=== PATIENT | female | born 1955 | race Caucasian/White ===

== ENCOUNTER → 2024-05-19 | Outpatient (CLI) | payer MEDICARE, BC, SELFPAY ==
--- NOTE | 2024-05-19 16:11 | XR_ITS ---
Examination: CT bilateral hips., without contrast. 2-D sagittal reconstructions. 2-D coronal reconstructions. 3-D reconstructions. Date and time of exam:May 19, 2024 1656 hours INDICATIONS: Bilateral hip pain 2 years CTDI: vol (mGy):11.1 DLP: (mGycm):351 Technique: Multiple 1.25 mm axial sections of the bilateral hips without intravenous contrast have been obtained. 2-D sagittal and coronal reconstructions have been obtained. 3-D reconstructions have been obtained. Low dose protocols were performed. One or more of the following dose reduction techniques were used; automated exposure control, adjustment of the mA and/or KV according to patient size, use of iterative reconstruction technique. Findings: 2 mm calcification anterior right kidney image 4 No hydronephrosis Normal appendix Scattered colonic diverticulosis No bladder mass Moderate osteopenia Moderate right hip osteoarthritis joint space narrowing and osteophyte formation Moderate to advanced left hip osteoarthritis, significant joint narrowing and osteophyte formation No hip or pelvic fracture Bones of the pelvis intact IMPRESSION: Moderate right hip osteoarthritis Moderate to advanced left hip osteoarthritis
--- NOTE | 2024-05-19 16:15 | XR_ITS ---
Examination: Bilateral hips, AP pelvis, 5 views Technique: AP, lateral views both hips, AP pelvis, 5 views Exam date and time: . May 19, 2024 7059 hours INDICATIONS: Bilateral hip pain 3 months FINDINGS: Moderate osteopenia Moderate right hip osteoarthritis Moderate to advanced left hip osteoarthritis No hip or pelvic fracture No avascular necrosis IMPRESSION: Moderate right hip osteoarthritis Moderate to advanced left hip osteoarthritis
== END | disposition home or self-care (01) ==
LOC: CDIM 15:50
PROVIDERS: PCP Specialist; Referring Provider Specialist; Visit Provider Specialist
DX: M16.0 Bilateral primary osteoarthritis of hip (principal); Z74.09 Other reduced mobility
CPT/HCPCS: 73523; 73700

== ENCOUNTER 2024-06-04 14:09 | Outpatient (AMB) | payer MEDICARE, BC, SELFPAY ==
[2024-06-04 14:40] VITALS: BP 127/80; PULSE 85; RESP 17; TEMP 36.3; O2SAT 97; BMI 33.5
--- NOTE | 2024-06-04 14:40 | ORTHONT_ITS ---
Vital signs 06/04/24 14:40 Height 1.65 m Height Method Stated Weight 91.229 kg Weight Measurement Method Standing Scale BMI 33.5 BP 127/80 Blood Pressure Source Automatic Cuff Blood Pressure Location Right Upper Arm Position Sitting Respiration 17 Pulse 85 Pulse Source Monitor Temp 97.3 F Temp Source Temporal Artery Scan Pulse Oximetry (%) 97 Oxygen Delivery Method Room Air Med/Allergies Allergies & Medications Allergies No Known Allergies Allergy (Verified 06/04/24 14:41) Medication Reconciliation gabapentin 300 mg capsule 300 mg PO QDAY 06/04/24 [History Confirmed 06/04/24] meloxicam submicronized 10 mg capsule 10 mg PO QAM 06/04/24 [History Confirmed 06/04/24] Exam Exam Patient is in no acute distress and is cooperative with the examination today. Breathing is nonlabored. In no respiratory distress. Patient has no paraspinal tenderness. Spinal deformity cannot be appreciated. The gait of the patient is nonantalgic Bilateral extremities were evaluated and demonstrates sensation intact to light touch. Palpable pedal pulses are present. No significant edema is present. Bilateral knees were examined and the patient has full strength and range of motion.. The right hip was examined. Patient was able to flex to 90 degrees, adduct to 30 degrees, abduct to 40 degrees, internally rotate to 20 degrees, and externally rotate to 20 degrees. Patient has a negative logroll. Stinchfield is negative. The patient is nontender diffusely to touch. The left hip was examined. Patient was able to flex to 90 degrees, adduct to 30 degrees, abduct to 40 degrees, internally rotate to 10 degrees. Left hip x-rays demonstrate complete joint space of the left hip Assessment and Plan Problem List (1) Osteoarthritis of left hip: Status: Acute Plan: Patient is a pleasant 69-year-old female with left hip pain and left hip arthritis of significant severity. She has back issues as well. I would like for her to get a left hip cortisone injection for both diagnostic and therapeutic purposes. We discussed total hip replacement but I would like to make sure that the pain is coming from the hip rather than back and that she gets relief. 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 HAND Level 3 ([id number]) MA Intake Visit Data Collection New Patient or Established: Established Patient (seen at [facility] within 3 years) Reason for Visit:: LT HIP PAIN Seen by Clinical Staff ONLY (RN/MA): No Geographic Information Systems Analyst Required: No PCP or OBGYN visit in last 3 months: Yes Hx Now: No Do You Feel Safe at Home: Yes Authorities Contacted: N/A Questionairres Past Medical History Past Medical History Have you ever been diagnosed with any of the following: Neurological Problems Seizures: No Migraine: Yes Cardiology Problems Hypercholesterolemia: Yes (NO MEDS) Congestive Heart Failure: No Hypertension: Yes (NO MEDS) Respiratory Problems Chronic Obstructive Pulmonary Disease (COPD): No Pneumonia: Yes (01/2022 - NOT HOSP) Smoking: No Smoking Cessation Counseling: No Smoking Exposure: No Tobacco Use: No Stomache/Intestinal Problems Hepatitis: No Gall Bladder Disease: Yes (FOR THIS PROC) Gastroesophageal Reflux Disease: Yes Obesity: Yes Genital/Urinary Problems Renal Disease: No Kidney Stones: Yes (NO SURG) Reproductive Problems Previous Pregnancies: Yes (X3) Endocrine Problems Diabetes Mellitus Type 1: No Diabetes Mellitus Type 2: No Other Problems Hospitalization: No Shingles: No Falls: No Blood Transfusions: Yes Blood Transfusion Reaction: No Anesthesia Reactions: No (SLOW TO WAKE UP) Chemotherapy: No Radiation Therapy: No MRSA: No Chicken Pox: Yes Measles: No Mumps: No Cancer: No Subjective Visit Visit for: new patient and hip (LEFT HIP PAIN ) Immunization / Flu Flu Vaccine in the Last 12 Months: Yes Flu Vaccine Exclusion Criteria: Already Received History of Present Illness Chief complaint: Left hip pain Edmundo is a pleasant 69-year-old female with left hip pain. She has had prior back issues and is being worked up at [facility] has had multiple injections. The left hip is bothering her. The pain is primarily in the buttocks and radiates to the groin. This has been ongoing for a while. She has tried anti- inflammatories and turmeric. The pain is significantly limiting her Personal History Red flag PMH: none Pain Pain level (0-10): 6 Pain duration: 1 YEAR Pain location: inside (medial) Pain quality: sharp, dull, aching, burning, shocking, electric and tingling Pain timing: night and increases with activity Associated signs & symptoms: stiffness Ambulatory data Ambulatory device: none Walking distance (minutes): 5 Treatments Number of previous injections: 1 Improvement with previous injections: No Number of Physical Therapy sessions: 12 Improvement with PT: No Improvement with NSAIDS: n/a Review of Systems Review of Systems: All systems negative unless otherwise noted in HPI.
== END 2024-06-04 15:07 | disposition home or self-care (01) ==
LOC: HODSRG 14:09
PROVIDERS: PCP Specialist; Referring Provider Specialist; Supervising Provider Orthopaedic Surgery Adult Reconstructive Orthopaedic Surgery; Visit Provider Orthopaedic Surgery Adult Reconstructive Orthopaedic Surgery
DX: M16.12 Unilateral primary osteoarthritis, left hip (principal); M25.552 Pain in left hip; I10 Essential (primary) hypertension; E78.00 Pure hypercholesterolemia, unspecified; K21.9 Gastro-esophageal reflux disease without esophagitis
CPT/HCPCS: 99203; G0463

== ENCOUNTER → 2024-06-08 | Outpatient (CLI) | payer MEDICARE, BC, SELFPAY ==
--- NOTE | 2024-06-08 13:00 | XR_ITS ---
Examination: Steroid injection left hip joint with imaging guidance Fluoroscopy AP left hip single view. Exam date and time: June 08, 2024 1222 hours INDICATIONS: Diagnosis unilateral left hip osteoarthritis severe left hip pain 2 years Informed consent provided. Technique: A timeout was completed verifying correct patient, procedure, site, positioning. The patient was placed in supine position appropriate for the steroid injection The patient's site was prepped and draped in sterile fashion 5 cc 1% lidocaine administered locally for anesthesia. Sterile drape applied, maximum barrier sterile technique. Utilizing fluoroscopic guidance, 23-gauge needle placed in the left hip joint 1 cc Kenalog 40 in 5 cc 0.25% Marcaine introduced into the left hip joint The patient was in satisfactory and stable condition on completion of the procedure Attending radiologist was present for the entire procedure Estimated blood loss 0 cc. Impression: Successful steroid injection left hip joint with imaging guidance Fluoroscopy 0.3 minute radiation dose 4.97 milligray 1 spot fluoroscopic hip film
== END | disposition home or self-care (01) ==
LOC: SIRX 12:29
PROVIDERS: Referring Provider Orthopaedic Surgery Adult Reconstructive Orthopaedic Surgery; Visit Provider Orthopaedic Surgery Adult Reconstructive Orthopaedic Surgery
DX: M16.12 Unilateral primary osteoarthritis, left hip (principal)
CPT/HCPCS: 20610; 77002

== ENCOUNTER 2024-09-03 08:59 | Outpatient (AMB) | payer MEDICARE, BC, SELFPAY ==
--- NOTE | 2024-09-03 09:25 | PD.ORTHCLVIS ---
Vital signs 09/03/24 09:26 Height 1.65 m Height Method Stated Weight 92.278 kg Weight Measurement Method Standing Scale BMI 33.9 BP 144/83 H Blood Pressure Source Automatic Cuff Blood Pressure Location Left Upper Arm Position Sitting Respiration 18 Pulse 74 Pulse Source Monitor Temp 96.8 F Temp Source Temporal Artery Scan Pulse Oximetry (%) 97 Oxygen Delivery Method Room Air Med/Allergies Allergies & Medications Allergies No Known Allergies Allergy (Verified 09/03/24 09:26) Medication Reconciliation gabapentin 300 mg capsule 300 mg PO QDAY 06/04/24 [History Confirmed 09/03/24] meloxicam submicronized 10 mg capsule 10 mg PO QAM 06/04/24 [History Confirmed 09/03/24] Exam Exam Patient is in no acute distress and is cooperative with the examination today. Breathing is nonlabored. In no respiratory distress. Patient has no paraspinal tenderness. Spinal deformity cannot be appreciated. The gait of the patient is nonantalgic Bilateral extremities were evaluated and demonstrates sensation intact to light touch. Palpable pedal pulses are present. No significant edema is present. Bilateral knees were examined and the patient has full strength and range of motion.. The right hip was examined. Patient was able to flex to 90 degrees, adduct to 30 degrees, abduct to 40 degrees, internally rotate to 20 degrees, and externally rotate to 20 degrees. Patient has a negative logroll. Stinchfield is negative. The patient is nontender diffusely to touch. The left hip was examined. Patient was able to flex to 90 degrees, adduct to 30 degrees, abduct to 40 degrees, internally rotate to 10 degrees. Left hip x-rays demonstrate complete joint space of the left hip Assessment and Plan Problem List (1) Osteoarthritis of left hip: Status: Acute Plan: Patient is a pleasant 69-year-old female with left hip pain and left hip arthritis of significant severity. She has back issues as well. I would like for her to get a left hip cortisone injection for both diagnostic and therapeutic purposes. The pain is primarily in the groin at this time. The pain did improve with the left hip cortisone injection and has returned. We thus discussed total hip replacement is a reasonable option. She does have a pannus anterior and I will go through a lateral approach. The nature and purpose of the total hip replacement, alternative method(s) of treatment, the material risks involved, and the possibility of complications were fully explained to the patient. The patient does NOT have any of the following contraindications to [place]: - Active infection of the hip joint, OR - Active systemic bacteremia, OR - Active skin infection or open wound at surgical site, OR - Neuropathic arthritis, OR - Severe, rapidly progressive neurological disease, OR - Severe medical condition that makes risks of the surgery outweigh the potential benefit The patient was told the most common risks and complications associated with a total hip replacement include, but are not limited to: blood clots in the leg, fatal pulmonary embolism, dislocation of the prosthesis, intraoperative and postoperative fractures of the femur or acetabulum, infection, failure of the prosthesis or grafting materials, complications from anesthesia, reactions to blood transfusions, postoperative leg length inequality, instability of the hip replacement, nerve damage or injury, vascular injury, delayed wound healing, infection, other injury or even . In addition, there are risks associated with anesthesia given during this operation. Also, the patient was told that after undergoing a total hip replacement there may still be persistent pain or disability. The patient was informed that the success of this operation in part depends upon the mechanical devices which are going to be implanted and that these devices can fail or malfunction, and may need to be repaired or replaced and there are no guarantees as to the longevity of this device or its parts and that it or its parts could fail prematurely. The patient was also notified that during the course of surgery, there may be a need to use bone graft from donors, and that any bone graft used will be carefully screened for communicable diseases, including AIDS, hepatitis, Alessandro-Creutzfeldt, or other diseases, but despite the screening procedures, there is a small chance that they could contract one of these diseases. Finally, the patient was asked to follow completely and fully with all advice and recommended treatments, and that recovery and ultimate outcome are affected by their compliance with recommended treatment. We discussed the risks, benefits and treatment alternatives, and the patient is interested in proceeding with surgery. We will try to set this up as expeditiously as possible. Advanced Care Planning Discussion Advance care planning discussed with:: patient Office Procedures GNS Level of Care Nursing/Assessment Patient Status: Established Patient Nursing Assessment/Reassesment: Medication Reconciliation, Update PMH in EMR and Vital Signs Coordination of Care: Complex Care and Chronic Disease 1-5, Education Complex Pt/Fam, Consent,records obtained, informed consent, Results/Orders obtained and Staff clarify orders Established Patient Charge Established Patient Point Assignment: 95 Established Patient Point Charge: EP Level 3 (80-115) MA Intake Visit Data Collection New Patient or Established: Established Patient (seen at [facility] within 3 years) Reason for Visit:: LEFT HIP PAIN REQ SX Seen by Clinical Staff ONLY (RN/MA): No PCP or OBGYN visit in last 3 months: Yes Hx Now: No Do You Feel Safe at Home: Yes Authorities Contacted: N/A Questionairres Past Medical History Past Medical History Have you ever been diagnosed with any of the following: Neurological Problems Cerebrovascular Accident (CVA): No Transient Ischemic Attacks (TIA): No Dementia: No Alzheimer's Disease: No Parkinson's Disease: No Brain Tumor: No Meningitis: No Seizures: No Epilepsy: No Multiple Sclerosis: No Cerebral Palsy: No Amyotrophic Lateral Sclerosis (ALS/Viky Gehrig's): No Guillain-[place] Syndrome: No Spina Bifida: No Paralysis: No Peripheral Neuropathy: No Mcclelland's Palsy: No Subdural Hematoma: No Migraine: Yes Head Trauma: No Spinal Cord Injury: No Traumatic Brain Injury: No Cardiology Problems Myocardial Infarction: No Cardiac Arrhythmia: No Atrial Fibrillation: No Angina: No Heart Murmur: No Coronary Artery Disease: No Atherosclerotic Heart Disease: No Peripheral Vascular Disease: No Hypercholesterolemia: Yes (NO MEDS) Aneurysm: No Congestive Heart Failure: No Congenital Heart Disease: No Valvular Heart Disease: No Rheumatic Fever: No Cardiomyopathy: No Edema: No Pericarditis: No Cellulitis: No Deep Vein Thrombosis: No Hypertension: Yes (NO MEDS) Hypotension: No Varicose Veins: No Respiratory Problems Chronic Obstructive Pulmonary Disease (COPD): No Asthma: No Bronchitis: No Emphysema: No Pneumonia: Yes (01/2022 - NOT HOSP) Tuberculosis: No Pulmonary Embolism: No Pulmonary Edema: No Sleep Apnea: No CPAP Dependent: No Respiratory Aspiration: No Dyspnea: No Orthopnea: No Hx Cough: No Cough: No Wheezing: No Chest Deformities: No Smoking: No Smoking Cessation Counseling: No Smoking Exposure: No Tobacco Use: No Clubbing: No Exposure to Respiratory Irritants: No Intubation: No Stomache/Intestinal Problems Liver Cancer: No Hepatitis: No Cirrhosis: No Pancreatic Cancer: No Pancreatitis: No Celiac Disease: No Gall Bladder Disease: Yes (FOR THIS PROC) Gastrointestinal Bleed: No Esophageal Varices: No Butler's Esophagus: No Colitis: No Ulcerative Colitis: No Diverticulitis: No Diverticulosis: No Ulcer: No Colorectal Cancer: No Irritable Bowel: No Crohn's Disease: No Obstructive Bowel: No Hiatal Hernia: No Hemorrhoids: No Gastroesophageal Reflux Disease: Yes Polyps: No Obesity: Yes Genital/Urinary Problems Chronic Kidney Disease: No Renal Disease: No Kidney Stones: Yes (NO SURG) Polycystic Kidney Disease: No Neurogenic Bladder: No Inguinal Hernia: No Dialysis: No Reproductive Problems Breast Cancer: No Endometriosis: No Fibroids: No Genital Herpes: No Gonorrhea: No Pelvic Inflammatory Disease: No Polycystic Ovarian Syndrome: No Previous Pregnancies: Yes (X3) Syphilis: No Uterine Prolapse: No Musculoskeletal Problems Muscular Dystrophy: No Myasthenia Gravis: No Marfan's Syndrome: No Bone Cancer: No Arthritis: No Rheumatoid Arthritis: No Osteoporosis: No Degenerative Disk Disease: No Gout: No Scoliosis: No Carpal Tunnel Syndrome: No Fibromyalgia: No Fractures: No Degenerative Joint Disease: No Osteomyelitis: No Poliovirus: No Head,Eye,Nose,Throat Problems Cataracts: No Glaucoma: No Blind: No Retinal Detachment: No Macular Degeneration: No Chronic Ear Infections: No Deafness: No Eye Prosthesis: No Endocrine Problems Diabetes Mellitus Type 1: No Diabetes Mellitus Type 2: No Hypoglycemia: No Pocahontas's Syndrome: No [place]'s Disease: No Hyperthyroidism: No Hypothyroidism: No Thyroid Cancer: No Parathyroid Disease: No Pituitary Disease: No Systemic Lupus Erythematosus: No Syndrome of Inappropriate Antidiuretic Hormone: No Adrenal Disease: No Graves' Disease: No Blood Problems Anemia: No Leukemia: No Hemophilia: No Thalassemia: No Sickle Cell Disease: No Clotting Problems: No Psychologic Problems Schizophrenia: No Recreational Drug Use: No Bipolar Disorder: No Depression: No Anxiety: No Behavior Problems: No Self-Mutilation: No Attention Deficit Disorder: No Attention Deficit Hyperactivity Disorder: No Depression: No Post Traumatic Stress Disorder: No Eating Disorder: No Other Problems Hospitalization: No Autoimmune Disease: No Down Syndrome: No Autism: No Developmental Delay: No Cosmetic Surgery: No Shingles: No Falls: No Blood Transfusions: Yes Blood Transfusion Reaction: No Anesthesia Reactions: No (SLOW TO WAKE UP) Organ Transplant: No Chemotherapy: No Radiation Therapy: No Hyperbaric Therapy: No MRSA: No VRSA: No Vancomycin-Resistant Enterococci: No Human Immunodeficiency Virus (HIV): No Chicken Pox: Yes Measles: No Mumps: No Rubella (Arabic Measles): No Pertussis: No Klebsiella Pneumoniae Carbapenemase Producing Bacteria: No Clostridium Difficile: No Hepatitis A: No Hepatitis B: No Hepatitis C: No Communicable Disease: No Cancer: No Cervical Cancer: No Lung Cancer: No Ovarian Cancer: No Surgical History Angioplasty: No Appendectomy: No Bariatric Surgery: No Breast Surgery: No Cancer Surgery: No Carotid Endarterectomy: No Cholecystectomy: No Colectomy: No Colostomy: No Coronary Artery Bypass Graft: No Valve Replacement: No Herniorrhaphy: No Total Hip Replacement: No Total Knee Replacement: No Hysterectomy: No Pacemaker: No Sinus Surgery: No Splenectomy: No TAHBSO-Total Abdominal Hysterectomy: No Thyroidectomy: No Ureter Stent: No Subjective Visit Visit for: follow up visit and hip (LEFT) Immunization / Flu Flu Vaccine in the Last 12 Months: No Flu Vaccine Exclusion Criteria: No Exclusion Criteria History of Present Illness Chief complaint: Left hip pain Edmundo is a pleasant 69-year-old female with left hip pain. She has had prior back issues and is being worked up at [facility] has had multiple injections. The left hip is bothering her. The pain is primarily in the buttocks and radiates to the groin. This has been ongoing for a while. She has tried anti-inflammatories and turmeric. The pain is significantly limiting her She received approximately a week of relief with the left hip cortisone injection. This was 3 months ago. She would like to proceed with surgery as the pain has returned Personal History Red flag PMH: none Pain Pain level (0-10): 10 Pain duration: ALL DAY Pain location: outside (lateral) Pain quality: sharp, dull and aching Pain timing: night, increases with activity and stairs Associated signs & symptoms: none Ambulatory data Ambulatory device: none Walking distance (minutes): 5 Treatments Number of previous injections: 1 Improvement with previous injections: No Number of Physical Therapy sessions: 12 Improvement with PT: No Improvement with NSAIDS: no Review of Systems Review of Systems: All systems negative unless otherwise noted in HPI.
[2024-09-03 09:26] VITALS: BP 144/83; PULSE 74; RESP 18; TEMP 36; O2SAT 97; BMI 33.9
== END 2024-09-03 10:14 | disposition home or self-care (01) ==
LOC: HODSRG 08:59
PROVIDERS: Supervising Provider Orthopaedic Surgery Adult Reconstructive Orthopaedic Surgery; Visit Provider Orthopaedic Surgery Adult Reconstructive Orthopaedic Surgery
DX: M16.12 Unilateral primary osteoarthritis, left hip (principal); M25.552 Pain in left hip; I10 Essential (primary) hypertension; E78.00 Pure hypercholesterolemia, unspecified; K21.9 Gastro-esophageal reflux disease without esophagitis
CPT/HCPCS: 99213; G0463

== ENCOUNTER → 2024-09-03 | Outpatient (CLI) | payer MEDICARE, BC, SELFPAY ==
--- NOTE | 2024-09-03 11:17 | EKG_ITS ---
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
[2024-09-03 12:02] LABS: Basophils # (Auto) 0.1 Thou/mm3 (0.0-0.2); Basophils % (Auto) 1 % (0-2.5); Eosinophils # (Auto) 0.3 Thou/mm3 (0.0-0.5); Eosinophils % (Auto) 5 % (0-10); Hematocrit 42.8 % (36.0-46.0); Hemoglobin 14.2 g/dL (12.0-16.0); Immature Granulocytes Auto 0.03 Thou/mm3 (0.00-0.00); Lymphocytes # (Auto) 2.3 Thou/mm3 (1.0-4.8); Lymphocytes % (Auto) 36 % (10-50); Mean Corpuscular HGB Conc 33.2 g/dl (31.0-37.0); Mean Corpuscular Hemoglobin 29.3 pg (25.0-35.0); Mean Corpuscular Volume 88 fL (80-100); Monocytes # (Auto) 0.5 Thou/mm3 (0.0-0.8); Monocytes % (Auto) 8 % (0-12); Neutrophils # (Auto) 3.1 Thou/mm3 (1.8-7.7); Neutrophils % (Auto) 49 % (37-80); Nucleated Red Blood Cell # 0.00 Thou/mm3 (0.00-0.00); Nucleated Red Blood Cell % 0 /100 WBC (0); Platelet Count 230 Thou/mm3 (140-440); RDW Standard Deviation 43.6 fL (36.4-46.3); Red Blood Count 4.84 Miln/mm3 (4.00-5.20); White Blood Count 6.3 Thou/mm3 (3.6-11.0)
[2024-09-03 12:19] LABS: INR 1.0 (0.9-1.3); Partial Thromboplastin Time 27.9 Seconds (22.0-36.0); Prothrombin Time 10.6 Seconds (9.0-12.2)
[2024-09-03 12:21] LABS: Alanine Aminotransferase 38 U/L (10-49); Albumin, Serum 4.6 gm/dL (3.4-4.8); Albumin/Globulin Ratio 1.6 (1.2-2.2); Alkaline Phosphatase 109 U/L (46-116); Anion Gap 9 (7-16); Aspartate Amino Transferase 34 U/L (0-34); BUN/Creatinine Ratio 17 Ratio (12-20); Bilirubin,Total 0.4 mg/dL (0.3-1.2); Blood Urea Nitrogen 17 mg/dL (9-23); Calcium 10.1 mg/dL (8.3-10.6); Calcium (Corrected) 10.1 mg/dL (8.5-10.1); Carbon Dioxide 30.4 mMol/L (20.0-31.0); Chloride 105 mMol/L (98-107); Creatinine (Component) 1.0 mg/dL (0.6-1.3); Globulin 2.9 gm/dL (2.3-3.5); Glucose 93 mg/dL (74-106); Osmolality,Calculated 288 (275-295); Potassium 4.6 mMol/L (3.4-5.1); Sodium 144 mMol/L (136-145); Total Protein 7.5 gm/dL (5.7-8.2); eGFR > 60 See Note
== END | disposition home or self-care (01) ==
PROVIDERS: PCP Specialist; Referring Provider Specialist; Visit Provider Specialist
DX: Z01.818 Encounter for other preprocedural examination (principal)
CPT/HCPCS: 36415; 80053; 85025; 85610; 85730; 93005

== ENCOUNTER → 2024-09-18 | Outpatient (CLI) | payer MEDICARE, BC, SELFPAY ==
--- NOTE | 2024-09-18 12:00 | XR_ITS ---
Examination: CT bilateral lower extremities, without contrast. 2-D sagittal reconstructions. 2-D coronal reconstructions. 3-D reconstructions. Date and time of exam:September 18, 2024, 1139 hours INDICATIONS: Left hip pain 2 years, diagnosis unilateral left hip osteoarthritis CTDI: vol (mGy):25.78 DLP: (mGycm):878 Technique: Multiple 1.25 mm axial sections of the bilateral extremities without intravenous contrast have been obtained. 2-D sagittal and coronal reconstructions have been obtained. 3-D reconstructions have been obtained. Low dose protocols were performed. One or more of the following dose reduction techniques were used; automated exposure control, adjustment of the mA and/or KV according to patient size, use of iterative reconstruction technique. Findings: Severe osteopenia Advanced left hip osteoarthritis, severe narrowing left hip joint Moderate narrowing right hip joint No hip fractures or definite avascular necrosis Bilateral moderate narrowing lateral patellofemoral joints Mild narrowing medial joint space right knee No new fractures IMPRESSION: Advanced left hip osteoarthritis
== END | disposition home or self-care (01) ==
PROVIDERS: Referring Provider Orthopaedic Surgery Adult Reconstructive Orthopaedic Surgery; Visit Provider Orthopaedic Surgery Adult Reconstructive Orthopaedic Surgery
DX: M16.12 Unilateral primary osteoarthritis, left hip (principal)
CPT/HCPCS: 72192; 73700

== ENCOUNTER 2024-10-01 16:33 | Observation (INO) | payer MEDICARE, BC, SELFPAY ==
[2024-09-25 08:02] VITALS: BMI 35.1
[2024-09-25 08:59] LABS: Basophils # (Auto) 0.1 Thou/mm3 (0.0-0.2); Basophils % (Auto) 1 % (0-2.5); Eosinophils # (Auto) 0.3 Thou/mm3 (0.0-0.5); Eosinophils % (Auto) 4 % (0-10); Hematocrit 43.7 % (36.0-46.0); Hemoglobin 14.2 g/dL (12.0-16.0); Immature Granulocytes Auto 0.03 Thou/mm3 (0.00-0.00); Lymphocytes # (Auto) 1.8 Thou/mm3 (1.0-4.8); Lymphocytes % (Auto) 22 % (10-50); Mean Corpuscular HGB Conc 32.5 g/dl (31.0-37.0); Mean Corpuscular Hemoglobin 29.5 pg (25.0-35.0); Mean Corpuscular Volume 91 fL (80-100); Monocytes # (Auto) 0.6 Thou/mm3 (0.0-0.8); Monocytes % (Auto) 7 % (0-12); Neutrophils # (Auto) 5.4 Thou/mm3 (1.8-7.7); Neutrophils % (Auto) 67 % (37-80); Nucleated Red Blood Cell # 0.00 Thou/mm3 (0.00-0.00); Nucleated Red Blood Cell % 0 /100 WBC (0); Platelet Count 213 Thou/mm3 (140-440); RDW Standard Deviation 44.5 fL (36.4-46.3); Red Blood Count 4.82 Miln/mm3 (4.00-5.20); White Blood Count 8.2 Thou/mm3 (3.6-11.0)
[2024-09-25 09:03] LABS: Alanine Aminotransferase 36 U/L (10-49); Albumin, Serum 4.6 gm/dL (3.4-4.8); Albumin/Globulin Ratio 1.7 (1.2-2.2); Alkaline Phosphatase 106 U/L (46-116); Anion Gap 8 (7-16); Aspartate Amino Transferase 32 U/L (0-34); BUN/Creatinine Ratio 20 Ratio (12-20); Bilirubin,Total 0.4 mg/dL (0.3-1.2); Blood Urea Nitrogen 20 mg/dL (9-23); Calcium 9.7 mg/dL (8.3-10.6); Calcium (Corrected) 9.7 mg/dL (8.5-10.1); Carbon Dioxide 29.7 mMol/L (20.0-31.0); Chloride 105 mMol/L (98-107); Creatinine (Component) 1.0 mg/dL (0.6-1.3); Estimated Creatinine Clearance 59.5 mL/min (>60); Globulin 2.7 gm/dL (2.3-3.5); Glucose 112 mg/dL (74-106); Osmolality,Calculated 288 (275-295); Potassium 4.8 mMol/L (3.4-5.1); Sodium 143 mMol/L (136-145); Total Protein 7.3 gm/dL (5.7-8.2); eGFR > 60 See Note
[2024-09-25 09:08] LABS: INR 1.0 (0.9-1.3); Partial Thromboplastin Time 27.3 Seconds (22.0-36.0); Prothrombin Time 10.9 Seconds (9.0-12.2)
[2024-10-01] VITALS (23 sets, daily range): BP systolic 112–168; BP diastolic 65–97; PULSE 61–88; RESP 11–18; TEMP 36.1–36.6; O2SAT 94–100; BMI 35.2; BMI 35.4; BMI 13.0
[2024-10-01] MEDS: RINGERS LACTATED 1000 ML 1,000 ML 20 ML IV (06:42)
[2024-10-01] MEDS: ACETAMINOPHEN 325 MG TABLET 650 MG PO (06:42)
[2024-10-01] MEDS: PREGABALIN 75 MG CAPSULE PO (06:43)
[2024-10-01] MEDS: MELOXICAM 7.5 MG TABLET PO (06:43)
--- NOTE | 2024-10-01 08:00 | XR_ITS ---
Examination: AP left hip single view Technique one AP portable left hip single view Date and time: October 01, 2024 0912 hours INDICATIONS: Status post total left hip arthroplasty. FINDINGS: Total left hip arthroplasty. Satisfactory alignment IMPRESSION: Total left hip arthroplasty with satisfactory alignment
--- NOTE | 2024-10-01 09:49 | PD.SUROPNT ---
Date of Procedure 10/01/24 Pre Op Diagnosis left hip osteoarthritis Post Op Diagnosis left hip osteoarthritis Procedure left total hip replacement mariza Findings full thickness cartilage loss and osteophytes, abductor tear Procedure Description Indications: The patient is a 69y.o. year-old with a longstanding history of left hip pain. After considering the patient's condition and the impact of their hip injury on the patient's quality of life and risks of nonoperative treatment, total hip replacement was offered as a reasonable option. Prior to the surgery I discussed the nature of the hip replacement surgery including alternatives to surgery and the purpose of, and indications for proceeding with surgery. I discussed that this surgery is a shared decision between the patient and the surgeon. Risks and benefits and alternatives of the procedure have been explained to the patient and their family. Anesthesia complications and risks include but are not limited to stroke, heart attack, and . The surgical risks include but are not limited to infection, instability/dislocation, bleeding, nerve and blood vessel injury, deep vein thrombosis, pulmonary embolus, stiffness, pain, scar, need for reoperation, leg length discrepancy, thigh numbness, weakness, and mechanical failure of the implant including loosening, metal complications, metal allergy, wear or breakage. I discussed the expected recovery from surgery and the importance of compliance with all our pre and post-operative recommendations in order to maximize the recovery. The patient/family understands the risks of loss of life, loss of limb and, loss of function and wishes to proceed. They understand they are at increased risk for infection given their history of smoking. A signed and witnessed consent was obtained and placed in the chart. Patient Positioning: The patient was placed in the lateral decubitus position on a standard table using a pegboard. An axillary role was placed. All extremities were padded to ensure adequate protection. A pendleton catheter was aseptically inserted. Time Out: A timeout was performed prior to the procedure which verified the correct patient, positioning, operation to be performed, operative site, antibiotics, allergies, imaging, and any other concerns. All parties were in agreement. Procedure in detail: The operative site was cleaned and draped in the usual sterile fashion. A final timeout was performed with all parties in agreement. We first placed percutaneous nellie pins above the ASIS and attached a hip array. A modified anterolateral approach to the hip was utilized. A 16cm skin incision was made centered over the greater trochanter in line with the femur. This was taken down through skin and subcutaneous tissue using a 10 blade. Bleeding was controlled using electrocautery. The fascia was identified and split in line with the femur. The charnley retractor was then placed. The abductor insertion was identified and a split made in the anterior 1/3 of the tendon proximally. Retractors were placed and the gluteus minimus was visualized. A capsulotomy was made down to the femoral neck anterior to the minimus. A split was then made in the anterior 1/3 of the vastus lateralis. A retractor was then placed anterior to the femoral shaft, the tendon was tagged with #1 ethibond sutures and a U-shaped split was made in the anterior 1/3 of the abductor tendon being careful to leave enough tendon to re-attach. The hip was then gently externally rotated as the anterior tissues were taken down with the tendon and capsule as one sleeve. Once the anterior tissue had been release off of bone a bone hook was placed and the hip was gently dislocated. Retractors were placed around the femoral neck and the femoral neck osteotomy was then made to freshen up the cut. The femoral head removed. The leg was then placed in extension and retractors were placed anterior and posterior to the acetabulum. We first mapped the acetabulum and pelvis with a probe. The inferior capsule was release to improved visualization and the labrum and osteophytes around the acetabulum were removed. The acetabulum was then reamed to bleeding bone with adequate wall coverage and the cup was impacted into place using the [employer] robot. Screws were then placed followed by the liner which was impacted and confirmed to be seated. We then turned our attention to the femur. The leg was brought into external rotation and the femur was exposed. A canal finder was used followed by a box osteotomy and the femur was broached sequentially. The trial stem was then left in and the hip was trialed using various neck offsets and head sizes until the appropriate size was found based on leg length, stability. Once we were satisfied with the construct a cross-table AP pelvis radiograph was obtained to confirm appropriate positioning and sizing. The hip was then dislocated and the trials were then removed and the final stem impacted into placed. The hip was then again trialed and the appropriate head size identified. The palumbo taper was then cleaned and dried and the final head impact into place and tested. The acetabulum was irrigated and confirmed to be free of debris. The hip was then reduced and taken through range of motion. The hip was stable in abduction and external rotation, adduction and external rotation, flexion past 90 degrees and internal rotation past 20 degrees. It did not sublux throughout range of motion and no impingement was detected. Leg lengths were appropriately restored based on preoperative leg lengths and intraoperative testing. Lengths and offset were further verified with the robot. We then removed the pins and the greater troch marker. The hip was then copiously irrigated with dilute betadine followed by normal saline. The hip was then injected with the cocktail per protocol The hip was the closed in layers. The abductor tendon was closed with #1 ethibond. The fascia was closed with 0 Vicryl followed by an 0 V-lock. . The deep layer was closed with 0-Vicryl and the subcutaneous layer by a 2-0 Vicryl. The subdermal layer was closed with a 3-0 monocryl. The skin was then cleaned and dried and steri-strips placed followed by a sterile dressing. The drapes were then taken down and the patient was placed supine. Leg lengths were confirmed to be appropriate and the patient's lower extremities were warm and well perfused with brisk capillary refill and palpable pulses. The patient was then awoken, transferred to the [facility] and taken to the PACU in stable condition. They tolerated the procedure well. The patient's family/caregiviers were made aware of their condition. Postoperative plan Activity: WBAT, no hip precautions , no active hip abduction DVT Prophylaxis: aspirin 81mg BID Antibiotics: Standard postoperative antibiotics x 24 hours Implants: Marika 52 cup, 3 high insignia, 1 screws, standard liner, 40-0 head Anesthesia spinal Implants marika Pathology / specimen None Pathology comment: none Estimated Blood Loss 150 Condition Stable Disposition same day Surgeon Juan Espinal MD Surgical Staff Operation Date: 10/01/24 07:30 Case Staff DIRECTOR OF EXHIBITS: Yvonne Peres RN First Assistant: Karen Barriga
--- NOTE | 2024-10-01 09:51 | XR_ITS ---
Examination:Left hip AP, lateral, AP pelvis 3 views Technique: Hip AP lateral, AP pelvis, 3 views Exam date and time:October 01, 2024 1040 hours INDICATIONS: Postop left hip arthroplasty FINDINGS: Total left hip arthroplasty. Satisfactory alignment Moderate right hip osteoarthritis IMPRESSION: Total left hip arthroplasty with satisfactory alignment.
--- NOTE | 2024-10-01 10:14 | SUR.PHASEI ---
pt received from OR in recovery bay 1. pt asleep but responds to voice, breathing unlabored on 2l oxymask. v/s stable. pt dressing to left hip cdi. report received from Clive CEDENO and Megan LEVIN.
[2024-10-01] MEDS: fentaNYL CIT INJ 50 mCg/ML AMP 2ML IVP ×2 (10:38→11:45)
[2024-10-01] MEDS: ONDANSETRON INJ 2 MG/ML INJ 2 ML 4 MG IVP (10:58)
[2024-10-01] MEDS: HYDROmorphone INJ 2 MG/ML VIAL 0.5 MG IVP (11:09)
--- NOTE | 2024-10-01 11:20 | SUR.PHASEII ---
Received report on pt. s/p left hip surgery from Gibran CEDENO. Pt. is AAOx3, no c/o pain or nausea at the moment, VSS, dressing to left hip CDI, pedal pulses present hedy., cap refill <3 to great toe hedy., will continue to assess dermatome level r/t spinal anesthesia.
[2024-10-01] MEDS: PROMETHAZINE INJ 12.5 MG in SODIUM CHLORIDE 0.9% 50 ML 101 MG IV (11:57)
--- NOTE | 2024-10-01 15:49 | SUR.PHASEII ---
Late entry-1400 pt attempted physical therapy, pt was not able to complete physical therapy. pt c/o nausea and dizziness. pt sitting in chair at bedside. 1410 able to assist pt from chair to bed.
--- NOTE | 2024-10-01 15:51 | SUR.PHASEII ---
pt able to tolerate oral fluids without difficulty swallowing or nausea/vomiting.
--- NOTE | 2024-10-01 16:40 | SUR.PHASEII ---
pt awake and alert, breathing unlabored on 1l nc. v/s stable. pt dressing to left hip cdi. report called to Renata CEDENO. pt transferred to room at this time.
[2024-10-01] MEDS: ACETAMINOPHEN IVPB 1,000 MG/100 ML VIAL 250 MG IV (17:46)
--- NOTE | 2024-10-01 21:12 | PD.IMCONS ---
HPI Data of Consult Requesting Physician: Juan Espinal MD Primary Care Provider: Michael Torres MD Consult Narrative Reason for consult: Postoperative evaluation for her multiple History of present illness: 69 years of female being evaluated at the request of the operating surgeon as she has a total hip replacement Postoperative she had a near syncopal episode and had to be put back in the chair in the bed Her blood sugar was fine She does have a history of essential hypertension hyperlipidemia cc:: cc: Juan Espinal MD Review of Systems Review of Systems Systems Reviewed: All systems reviewed, normal except as documented Past Medical History Surgical History OTHER SURGICAL HX: Lumbosacral radiculopathy Osteoarthritis Bilateral hip pain Meds Home Medications and Allergies Home Medications ?Medication ?Instructions ?Recorded ?Confirmed ?Type gabapentin 300 mg capsule 300 mg PO HS PRN pain 06/04/24 09/25/24 History cholecalciferol (vitamin D3) 50 150 mcg PO QDAY 09/25/24 09/25/24 History mcg (2,000 unit) tablet (D3 DOTS) loratadine 10 mg tablet 10 mg PO QDAY 09/25/24 09/25/24 History (Allerclear) magnesium 250 mg tablet 250 mg PO QDAY 09/25/24 09/25/24 History meloxicam 15 mg tablet 15 mg PO DAILY 09/25/24 09/25/24 History omega 8-unn-pca-fish oil 1,200 mg 1 cap PO DAILY 09/25/24 09/25/24 History (144 mg-216 mg) capsule (Fish Oil) turmeric 400 mg capsule 400 mg PO DAILY 09/25/24 09/25/24 History Allergies Allergy/AdvReac Type Severity Reaction Status Date / Time No Known Allergies Allergy Verified 10/01/24 06:25 Exam Vital Signs Temp Pulse Resp BP Pulse Ox O2 Del Method O2 Flow Rate 97.5 F 88 17 158/82 H 95 Nasal Cannula 1 10/01/24 20:00 10/01/24 20:00 10/01/24 20:00 10/01/24 20:00 10/01/24 20:00 10/01/24 20:00 10/01/24 20:00 FiO2 1 10/01/24 16:00 Constitutional Comments: Alert oriented Routine Respiratory Exam Comments: Normal to auscultation Routine Abdominal Exam Comments: Soft nontender Results Labs 09/25/24 08:23 09/25/24 08:23 Assessment and Plan Additional Assessment & Plan Additional Plan: # Status post left total hip replacement # Status post repair of the left abductor muscle intraoperatively # No true syncope postoperatively most likely the effect of the medication postoperatively No further workup necessary Continue current management Will see the patient in the morning thank you for the opportunity to participate in the care of this patient
[2024-10-01] MEDS: HYDROcodone/APAP 5/325 TABLET 1 TAB PO (21:36)
[2024-10-01] MEDS: KETOROLAC INJ 30 MG/ML VIAL 15 MG IVP (22:33)
[2024-10-02] VITALS: BP 142/76; PULSE 91; RESP 17; TEMP 36.1; O2SAT 95
[2024-10-02] MEDS: HYDROcodone/APAP 5/325 TABLET 1 TAB PO ×2 (03:37→10:53)
[2024-10-02 04:00] VITALS: BP 148/80; PULSE 89; RESP 18; TEMP 36.3; O2SAT 95
[2024-10-02] MEDS: KETOROLAC INJ 30 MG/ML VIAL 15 MG IVP (07:14)
[2024-10-02 07:19] VITALS: RESP 16
[2024-10-02 08:00] VITALS: BP 113/64; PULSE 95; RESP 16; TEMP 36.1; O2SAT 97
--- NOTE | 2024-10-02 09:18 | PC.SS ---
Patient is a 69 year old female presenting to the hospital for LT HIP. COPYIST made contact with patient at bedside and explained role and reason for visit. Patient verified that she lives at home with Kevin ph: [phone]. Patient stated that her PCP is Dr. Torres last seen in May 2024. Patient stated that she was referred to Dr. Espinal for hip surgery. Patient reported her pharmacy of choice is [facility] in [place]. Patient uses cane and stated that she has all medical equipment she needs at home. Patient reported her d/c plan is to return home and her sister Lupe will be caring for her. Patient stated that she will be going home with home health with [facility]. Patient stated that she will d/c once she is seen by PT. ? D/C: Home with HH Next of kin: Kevin Penaloza [phone] PCP: Dr. Torres
[2024-10-02] MEDS: ASPIRIN EC 81 MG TABEC PO (09:19)
[2024-10-02 11:42] VITALS: BMI 14.0
[2024-10-02 12:00] VITALS: BP 135/64; PULSE 86; RESP 17; TEMP 36.2; O2SAT 92
--- NOTE | 2024-10-02 18:31 | PD.IMPROG ---
Documentation for date of: 10/02/24 Subjective Subjective Interval history: Late entry for the note Patient can be discharged home to be followed by me as an outpatient It is up to the orthopedic operating surgeon Exam Vital Signs Temp Pulse Resp BP Pulse Ox O2 Del Method O2 Flow Rate 97.1 F 86 17 135/64 H 92 L Room Air 1 10/02/24 12:00 10/02/24 12:00 10/02/24 12:00 10/02/24 12:00 10/02/24 12:00 10/02/24 12:00 10/02/24 08:00 FiO2 1 10/02/24 08:00 Objective Labs 09/25/24 08:23 09/25/24 08:23 Impressions Impression: # Doing well postoperatively after left total hip replacement As well as repair of the left abductor muscle in Okay to discharge patient home from a internal medicine to be followed by EP and the orthopedic surgeon as an outpatient Assessment & Plan A&P Narrative # Status post left total hip replacement # Status post repair of the left abductor muscle intraoperatively # No true syncope postoperatively most likely the effect of the medication postoperatively No further workup necessary Continue current management Will see the patient in the morning thank you for the opportunity to participate in the care of this patient Time Spent With Patient Time: Total time spent is greater than 50% in coordination of care (as documented) at patient's floor/unit and/or counseling patient: Quality - progress note VTE Deep Vein Thrombosis/Pulmonary Embolism Present on Admission: No
== END 2024-10-02 13:25 | disposition home or self-care (01) ==
LOC: S3SX 17:01
PROVIDERS: Anesthesiology; Admitting Provider Orthopaedic Surgery Adult Reconstructive Orthopaedic Surgery; PCP Specialist; Referring Provider Orthopaedic Surgery Adult Reconstructive Orthopaedic Surgery; Visit Provider Orthopaedic Surgery Adult Reconstructive Orthopaedic Surgery
PROC: (CPT 27130; principal; 2024-10-01 07:30)
DX: M16.12 Unilateral primary osteoarthritis, left hip (principal)
CPT/HCPCS: 27130; 36415; 73501; 73502; 80053; 85025; 85610; 85730; 96361; 96365; 96375; 96376; 97162; A4217; A4649; C1713; C1776; G0378; J0131; J1171; J1885; J2371; J2405; J2550; J2704; J3010; J3490; J7030; J7120; J7999; A4648; A9270

== ENCOUNTER 2024-10-15 09:55 | Outpatient (AMB) | payer MEDICARE, BC, SELFPAY ==
--- NOTE | 2024-10-15 10:10 | PD.ORTHCLVIS ---
Vital signs 10/15/24 10:11 Height 1.63 m Height Method Stated Weight 93.242 kg Weight Measurement Method Standing Scale BMI 35.1 BP 139/83 H Blood Pressure Source Automatic Cuff Blood Pressure Location Left Upper Arm Position Sitting Respiration 19 Pulse 96 Pulse Source Monitor Temp 98.0 F Temp Source Temporal Artery Scan Pulse Oximetry (%) 97 Oxygen Delivery Method Room Air Med/Allergies Allergies & Medications Allergies No Known Allergies Allergy (Verified 10/15/24 10:11) Medication Reconciliation gabapentin 300 mg capsule 300 mg PO HS PRN pain 06/04/24 [History Confirmed 10/15/24] cholecalciferol (vitamin D3) 50 mcg (2,000 unit) tablet (D3 DOTS) 150 mcg PO QDAY 09/25/24 [History Confirmed 10/15/24] loratadine 10 mg tablet (Allerclear) 10 mg PO QDAY 09/25/24 [History Confirmed 10/15/24] magnesium 250 mg tablet 250 mg PO QDAY 09/25/24 [History Confirmed 10/15/24] meloxicam 15 mg tablet 15 mg PO DAILY 09/25/24 [History Confirmed 10/15/24] omega 2-xyt-ghg-fish oil 1,200 mg (144 mg-216 mg) capsule (Fish Oil) 1 cap PO DAILY 09/25/24 [History Confirmed 10/15/24] turmeric 400 mg capsule 400 mg PO DAILY 09/25/24 [History Confirmed 10/15/24] acetaminophen 500 mg tablet (Acetaminophen Extra Strength) 1,000 mg (2 x 500 mg) PO Q6H PRN pain #90 tabs 10/01/24 [Rx Confirmed 10/15/24] aspirin 81 mg tablet,delayed release 81 mg PO BID #60 tabs 10/01/24 [Rx Confirmed 10/15/24] doxycycline hyclate 100 mg tablet 100 mg PO BID #14 tabs 10/01/24 [Rx Confirmed 10/15/24] gabapentin 300 mg capsule 300 mg PO .qhs #30 caps 10/01/24 [Rx Confirmed 10/15/24] sennosides 8.6 mg-docusate sodium 50 mg tablet (Senna-S) 1 tab-cap PO QDAY #30 tabs 10/01/24 [Rx Confirmed 10/15/24] hydrocodone 5 mg-acetaminophen 325 mg tablet 1 tab PO Q6H PRN pain #28 tabs 10/02/24 [Rx Confirmed 10/15/24] Exam Exam Patient is in no acute distress and is cooperative with the examination today. Patient has a normal mood and affect. Breathing is nonlabored. In no respiratory distress. Bilateral extremities were evaluated and demonstrates sensation intact to light touch. Palpable pedal pulses are present. No significant edema is present. Left hip incision is clean dry and intact Assessment and Plan Problem List (1) Osteoarthritis of left hip: Status: Acute Plan: Patient is doing well status post left total hip replacement. We will see her back in approximately 4 weeks with new x-rays. We will transition her to outpatient therapy (2) Status post total hip replacement, left: Status: Acute Advanced Care Planning Discussion Advance care planning discussed with:: patient Office Procedures GNS Level of Care Nursing/Assessment Patient Status: Established Patient Nursing Assessment/Reassesment: Medication Reconciliation, Update PMH in EMR and Vital Signs Coordination of Care: Complex Care and Chronic Disease 1-5, Education Complex Pt/Fam, Consent,records obtained, informed consent, Results/Orders obtained and Staff clarify orders Established Patient Charge Established Patient Point Assignment: 95 Established Patient Point Charge: EP Level 3 (80-115) MA Intake Visit Data Collection New Patient or Established: Established Patient (seen at [facility] within 3 years) Reason for Visit:: 2 WEEK L CALIXTO FU Seen by Clinical Staff ONLY (RN/MA): No PCP or OBGYN visit in last 3 months: Yes Hx Now: No Do You Feel Safe at Home: Yes Authorities Contacted: N/A Questionairres Past Medical History Past Medical History Have you ever been diagnosed with any of the following: Neurological Problems Cerebrovascular Accident (CVA): No Transient Ischemic Attacks (TIA): No Dementia: No Alzheimer's Disease: No Parkinson's Disease: No Brain Tumor: No Meningitis: No Seizures: No Epilepsy: No Multiple Sclerosis: No Cerebral Palsy: No Amyotrophic Lateral Sclerosis (ALS/Viky Gehrig's): No Guillain-[place] Syndrome: No Spina Bifida: No Paralysis: No Peripheral Neuropathy: No Mcclelland's Palsy: No Subdural Hematoma: No Migraine: No Head Trauma: No Spinal Cord Injury: No Traumatic Brain Injury: No Cardiology Problems Myocardial Infarction: No Cardiac Arrhythmia: No Atrial Fibrillation: No Angina: No Heart Murmur: No Coronary Artery Disease: No Atherosclerotic Heart Disease: No Peripheral Vascular Disease: No Hypercholesterolemia: No Aneurysm: No Congestive Heart Failure: No Congenital Heart Disease: No Valvular Heart Disease: No Rheumatic Fever: No Cardiomyopathy: No Edema: No Pericarditis: No Cellulitis: No Deep Vein Thrombosis: No Hypertension: No Hypotension: No Varicose Veins: No Respiratory Problems Chronic Obstructive Pulmonary Disease (COPD): No Asthma: No Bronchitis: No Emphysema: No Pneumonia: Yes (01/2022 - NOT HOSP) Tuberculosis: No Pulmonary Embolism: No Pulmonary Edema: No Sleep Apnea: No CPAP Dependent: No Respiratory Aspiration: No Dyspnea: No Orthopnea: No Hx Cough: No Cough: No Wheezing: No Chest Deformities: No Smoking: No Smoking Cessation Counseling: No Smoking Exposure: No Tobacco Use: No Clubbing: No Exposure to Respiratory Irritants: No Intubation: No Stomache/Intestinal Problems Liver Cancer: No Hepatitis: No Cirrhosis: No Pancreatic Cancer: No Pancreatitis: No Celiac Disease: No Gall Bladder Disease: Yes (FOR THIS PROC) Gastrointestinal Bleed: No Esophageal Varices: No Butler's Esophagus: No Colitis: No Ulcerative Colitis: No Diverticulitis: No Diverticulosis: No Ulcer: No Colorectal Cancer: No Irritable Bowel: No Crohn's Disease: No Obstructive Bowel: No Hiatal Hernia: No Hemorrhoids: No Gastroesophageal Reflux Disease: Yes Polyps: No Obesity: Yes Genital/Urinary Problems Chronic Kidney Disease: No Renal Disease: No Kidney Stones: Yes (NO SURG) Polycystic Kidney Disease: No Neurogenic Bladder: No Inguinal Hernia: No Dialysis: No Reproductive Problems Breast Cancer: No Endometriosis: No Fibroids: No Genital Herpes: No Gonorrhea: No Pelvic Inflammatory Disease: No Polycystic Ovarian Syndrome: No Previous Pregnancies: Yes (X3) Syphilis: No Uterine Prolapse: No Musculoskeletal Problems Muscular Dystrophy: No Myasthenia Gravis: No Marfan's Syndrome: No Bone Cancer: No Arthritis: No Rheumatoid Arthritis: No Osteoporosis: No Degenerative Disk Disease: No Gout: No Scoliosis: No Carpal Tunnel Syndrome: No Fibromyalgia: No Fractures: No Degenerative Joint Disease: No Osteomyelitis: No Poliovirus: No Head,Eye,Nose,Throat Problems Cataracts: No Glaucoma: No Blind: No Retinal Detachment: No Macular Degeneration: No Chronic Ear Infections: No Deafness: No Eye Prosthesis: No Endocrine Problems Diabetes Mellitus Type 1: No Diabetes Mellitus Type 2: No Hypoglycemia: No Nona's Syndrome: No Arnulfo's Disease: No Hyperthyroidism: No Hypothyroidism: No Thyroid Cancer: No Parathyroid Disease: No Pituitary Disease: No Systemic Lupus Erythematosus: No Syndrome of Inappropriate Antidiuretic Hormone: No Adrenal Disease: No Graves' Disease: No Blood Problems Anemia: No Leukemia: No Hemophilia: No Thalassemia: No Sickle Cell Disease: No Clotting Problems: No Psychologic Problems Schizophrenia: No Recreational Drug Use: No Bipolar Disorder: No Depression: No Anxiety: No Behavior Problems: No Self-Mutilation: No Attention Deficit Disorder: No Attention Deficit Hyperactivity Disorder: No Depression: No Post Traumatic Stress Disorder: No Eating Disorder: No Other Problems Hospitalization: No Autoimmune Disease: No Down Syndrome: No Autism: No Developmental Delay: No Cosmetic Surgery: No Shingles: No Falls: No Blood Transfusions: No Blood Transfusion Reaction: No Anesthesia Reactions: No Organ Transplant: No Chemotherapy: No Radiation Therapy: No Hyperbaric Therapy: No MRSA: No VRSA: No Vancomycin-Resistant Enterococci: No Human Immunodeficiency Virus (HIV): No Chicken Pox: Yes Measles: No Mumps: No Rubella (Romanian Measles): No Pertussis: No Klebsiella Pneumoniae Carbapenemase Producing Bacteria: No Clostridium Difficile: No Hepatitis A: No Hepatitis B: No Hepatitis C: No Communicable Disease: No Cancer: No Cervical Cancer: No Lung Cancer: No Ovarian Cancer: No Surgical History Angioplasty: No Appendectomy: No Bariatric Surgery: No Breast Surgery: No Cancer Surgery: No Carotid Endarterectomy: No Cholecystectomy: No Colectomy: No Colostomy: No Coronary Artery Bypass Graft: No Valve Replacement: No Herniorrhaphy: No Total Hip Replacement: No Total Knee Replacement: No Hysterectomy: No Pacemaker: No Sinus Surgery: No Splenectomy: No TAHBSO-Total Abdominal Hysterectomy: No Thyroidectomy: No Ureter Stent: No Subjective Visit Visit for: follow up visit, post op #1 and hip (LEFT) Immunization / Flu Flu Vaccine in the Last 12 Months: No Flu Vaccine Exclusion Criteria: No Exclusion Criteria History of Present Illness Chief complaint: Left hip pain Edmundo is a pleasant 69-year-old female with left hip pain. She has had prior back issues and is being worked up at [facility] has had multiple injections. The left CALIXTO is doing well. Personal History Red flag PMH: none Pain Pain level (0-10): 10 Pain duration: ALL DAY Pain location: outside (lateral) Pain quality: sharp, dull and aching Pain timing: night, increases with activity and stairs Associated signs & symptoms: none Ambulatory data Ambulatory device: walker Walking distance (minutes): 5 Treatments Number of previous injections: 1 Improvement with previous injections: No Number of Physical Therapy sessions: 12 Improvement with PT: No Improvement with NSAIDS: no Review of Systems Review of Systems: All systems negative unless otherwise noted in HPI.
[2024-10-15 10:11] VITALS: BP 139/83; PULSE 96; RESP 19; TEMP 36.7; O2SAT 97; BMI 35.1
== END 2024-10-15 10:31 | disposition home or self-care (01) ==
LOC: HODSRG 09:55
PROVIDERS: PCP Specialist; Referring Provider Specialist; Supervising Provider Orthopaedic Surgery Adult Reconstructive Orthopaedic Surgery; Visit Provider Orthopaedic Surgery Adult Reconstructive Orthopaedic Surgery
DX: M16.12 Unilateral primary osteoarthritis, left hip (principal); Z96.642 Presence of left artificial hip joint; M25.552 Pain in left hip; K21.9 Gastro-esophageal reflux disease without esophagitis; E66.9 Obesity, unspecified; Z68.35 Body mass index [BMI] 35.0-35.9, adult
CPT/HCPCS: 99213; G0463

== ENCOUNTER 2024-11-12 08:13 | Outpatient (AMB) | payer MEDICARE, BC, SELFPAY ==
--- NOTE | 2024-11-12 08:42 | ORTHONT_ITS ---
Vital signs 11/12/24 08:43 Height 1.63 m Height Method Measured Weight 93.667 kg Weight Measurement Method Standing Scale BMI 35.2 BP 127/72 Blood Pressure Source Automatic Cuff Blood Pressure Location Left Upper Arm Position Sitting Respiration 19 Pulse 72 Pulse Source Monitor Temp 97.4 F Temp Source Temporal Artery Scan Pulse Oximetry (%) 96 Oxygen Delivery Method Room Air Med/Allergies Allergies & Medications Allergies No Known Allergies Allergy (Verified 11/12/24 08:44) Medication Reconciliation gabapentin 300 mg capsule 300 mg PO HS PRN pain 06/04/24 [History Confirmed 11/12/24] cholecalciferol (vitamin D3) 50 mcg (2,000 unit) tablet (D3 DOTS) 150 mcg PO QDAY 09/25/24 [History Confirmed 11/12/24] loratadine 10 mg tablet (Allerclear) 10 mg PO QDAY 09/25/24 [History Confirmed 11/12/24] magnesium 250 mg tablet 250 mg PO QDAY 09/25/24 [History Confirmed 11/12/24] meloxicam 15 mg tablet 15 mg PO DAILY 09/25/24 [History Confirmed 11/12/24] omega 4-kzt-tyu-fish oil 1,200 mg (144 mg-216 mg) capsule (Fish Oil) 1 cap PO DAILY 09/25/24 [History Confirmed 11/12/24] turmeric 400 mg capsule 400 mg PO DAILY 09/25/24 [History Confirmed 11/12/24] acetaminophen 500 mg tablet (Acetaminophen Extra Strength) 1,000 mg (2 x 500 mg) PO Q6H PRN pain #90 tabs 10/01/24 [Rx Confirmed 11/12/24] aspirin 81 mg tablet,delayed release 81 mg PO BID #60 tabs 10/01/24 [Rx Confirmed 11/12/24] doxycycline hyclate 100 mg tablet 100 mg PO BID #14 tabs 10/01/24 [Rx Confirmed 11/12/24] gabapentin 300 mg capsule 300 mg PO .qhs #30 caps 10/01/24 [Rx Confirmed 11/12/24] sennosides 8.6 mg-docusate sodium 50 mg tablet (Senna-S) 1 tab-cap PO QDAY #30 tabs 10/01/24 [Rx Confirmed 11/12/24] hydrocodone 5 mg-acetaminophen 325 mg tablet 1 tab PO Q6H PRN pain #28 tabs 10/02/24 [Rx Confirmed 11/12/24] Exam Exam Patient is in no acute distress and is cooperative with the examination today. Patient has a normal mood and affect. Breathing is nonlabored. In no respiratory distress. Bilateral extremities were evaluated and demonstrates sensation intact to light touch. Palpable pedal pulses are present. No significant edema is present. Left hip incision is clean dry and intact Assessment and Plan Problem List (1) Osteoarthritis of left hip: Status: Acute Plan: Patient is doing well status post left total hip replacement. We will see her back in approximately 6 weeks and she is doing well with outpatient physical therapy We will see the patient back in 6 weeks for routine follow-up (2) Status post total hip replacement, left: Status: Acute Advanced Care Planning Discussion Advance care planning discussed with:: patient Office Procedures GNS Level of Care Nursing/Assessment Patient Status: Established Patient Nursing Assessment/Reassesment: Medication Reconciliation, Update PMH in EMR and Vital Signs Coordination of Care: Complex Care and Chronic Disease 1-5, Education Complex Pt/Fam, Consent,records obtained, informed consent, Results/Orders obtained and Staff clarify orders Established Patient Charge Established Patient Point Assignment: 95 Established Patient Point Charge: EP Level 3 (80-115) MA Intake Visit Data Collection New Patient or Established: Established Patient (seen at [facility] within 3 years) Reason for Visit:: 4 WEEK LEFT TKA Seen by Clinical Staff ONLY (RN/MA): No Escrow Representative Required: No PCP or OBGYN visit in last 3 months: Yes Hx Now: No Do You Feel Safe at Home: Yes Authorities Contacted: N/A Questionairres Past Medical History Past Medical History Have you ever been diagnosed with any of the following: Neurological Problems Cerebrovascular Accident (CVA): No Transient Ischemic Attacks (TIA): No Dementia: No Alzheimer's Disease: No Parkinson's Disease: No Brain Tumor: No Meningitis: No Seizures: No Epilepsy: No Multiple Sclerosis: No Cerebral Palsy: No Amyotrophic Lateral Sclerosis (ALS/Viky Gehrig's): No Guillain-[place] Syndrome: No Spina Bifida: No Paralysis: No Peripheral Neuropathy: No Mcclelland's Palsy: No Subdural Hematoma: No Migraine: No Head Trauma: No Spinal Cord Injury: No Traumatic Brain Injury: No Cardiology Problems Myocardial Infarction: No Cardiac Arrhythmia: No Atrial Fibrillation: No Angina: No Heart Murmur: No Coronary Artery Disease: No Atherosclerotic Heart Disease: No Peripheral Vascular Disease: No Hypercholesterolemia: No Aneurysm: No Congestive Heart Failure: No Congenital Heart Disease: No Valvular Heart Disease: No Rheumatic Fever: No Cardiomyopathy: No Edema: No Pericarditis: No Cellulitis: No Deep Vein Thrombosis: No Hypertension: No Hypotension: No Varicose Veins: No Respiratory Problems Chronic Obstructive Pulmonary Disease (COPD): No Asthma: No Bronchitis: No Emphysema: No Pneumonia: Yes (01/2022 - NOT HOSP) Tuberculosis: No Pulmonary Embolism: No Pulmonary Edema: No Sleep Apnea: No CPAP Dependent: No Respiratory Aspiration: No Dyspnea: No Orthopnea: No Hx Cough: No Cough: No Wheezing: No Chest Deformities: No Smoking: No Smoking Cessation Counseling: No Smoking Exposure: No Tobacco Use: No Clubbing: No Exposure to Respiratory Irritants: No Intubation: No Stomache/Intestinal Problems Liver Cancer: No Hepatitis: No Cirrhosis: No Pancreatic Cancer: No Pancreatitis: No Celiac Disease: No Gall Bladder Disease: Yes (FOR THIS PROC) Gastrointestinal Bleed: No Esophageal Varices: No Butler's Esophagus: No Colitis: No Ulcerative Colitis: No Diverticulitis: No Diverticulosis: No Ulcer: No Colorectal Cancer: No Irritable Bowel: No Crohn's Disease: No Obstructive Bowel: No Hiatal Hernia: No Hemorrhoids: No Gastroesophageal Reflux Disease: Yes Polyps: No Obesity: Yes Genital/Urinary Problems Chronic Kidney Disease: No Renal Disease: No Kidney Stones: Yes (NO SURG) Polycystic Kidney Disease: No Neurogenic Bladder: No Inguinal Hernia: No Dialysis: No Reproductive Problems Breast Cancer: No Endometriosis: No Fibroids: No Genital Herpes: No Gonorrhea: No Pelvic Inflammatory Disease: No Polycystic Ovarian Syndrome: No Previous Pregnancies: Yes (X3) Syphilis: No Uterine Prolapse: No Musculoskeletal Problems Muscular Dystrophy: No Myasthenia Gravis: No Marfan's Syndrome: No Bone Cancer: No Arthritis: No Rheumatoid Arthritis: No Osteoporosis: No Degenerative Disk Disease: No Gout: No Scoliosis: No Carpal Tunnel Syndrome: No Fibromyalgia: No Fractures: No Degenerative Joint Disease: No Osteomyelitis: No Poliovirus: No Head,Eye,Nose,Throat Problems Cataracts: No Glaucoma: No Blind: No Retinal Detachment: No Macular Degeneration: No Chronic Ear Infections: No Deafness: No Eye Prosthesis: No Endocrine Problems Diabetes Mellitus Type 1: No Diabetes Mellitus Type 2: No Hypoglycemia: No Nona's Syndrome: No Arnulfo's Disease: No Hyperthyroidism: No Hypothyroidism: No Thyroid Cancer: No Parathyroid Disease: No Pituitary Disease: No Systemic Lupus Erythematosus: No Syndrome of Inappropriate Antidiuretic Hormone: No Adrenal Disease: No Graves' Disease: No Blood Problems Anemia: No Leukemia: No Hemophilia: No Thalassemia: No Sickle Cell Disease: No Clotting Problems: No Psychologic Problems Schizophrenia: No Recreational Drug Use: No Bipolar Disorder: No Depression: No Anxiety: No Behavior Problems: No Self-Mutilation: No Attention Deficit Disorder: No Attention Deficit Hyperactivity Disorder: No Depression: No Post Traumatic Stress Disorder: No Eating Disorder: No Other Problems Hospitalization: No Autoimmune Disease: No Down Syndrome: No Autism: No Developmental Delay: No Cosmetic Surgery: No Shingles: No Falls: No Blood Transfusions: No Blood Transfusion Reaction: No Anesthesia Reactions: No Organ Transplant: No Chemotherapy: No Radiation Therapy: No Hyperbaric Therapy: No MRSA: No VRSA: No Vancomycin-Resistant Enterococci: No Human Immunodeficiency Virus (HIV): No Chicken Pox: Yes Measles: No Mumps: No Rubella ([place] Measles): No Pertussis: No Klebsiella Pneumoniae Carbapenemase Producing Bacteria: No Clostridium Difficile: No Hepatitis A: No Hepatitis B: No Hepatitis C: No Communicable Disease: No Cancer: No Cervical Cancer: No Lung Cancer: No Ovarian Cancer: No Surgical History Angioplasty: No Appendectomy: No Bariatric Surgery: No Breast Surgery: No Cancer Surgery: No Carotid Endarterectomy: No Cholecystectomy: No Colectomy: No Colostomy: No Coronary Artery Bypass Graft: No Valve Replacement: No Herniorrhaphy: No Total Hip Replacement: No Total Knee Replacement: No Hysterectomy: No Pacemaker: No Sinus Surgery: No Splenectomy: No TAHBSO-Total Abdominal Hysterectomy: No Thyroidectomy: No Ureter Stent: No Subjective Visit Visit for: follow up visit and knee Immunization / Flu Flu Vaccine in the Last 12 Months: No Flu Vaccine Exclusion Criteria: No Exclusion Criteria History of Present Illness Chief complaint: Left hip pain Edmundo is a pleasant 69-year-old female with left hip pain. She has had prior back issues and is being worked up at [facility] has had multiple injections. The l eft CALIXTO is doing well. Personal History Red flag PMH: none Pain Pain level (0-10): 0 Pain duration: ALL DAY Pain location: outside (lateral) Pain quality: sharp, dull and aching Pain timing: night, increases with activity and stairs Associated signs & symptoms: none Ambulatory data Ambulatory device: walker Walking distance (minutes): 5 Treatments Number of previous injections: 1 Improvement with previous injections: No Number of Physical Therapy sessions: 12 Improvement with PT: No Improvement with NSAIDS: no Review of Systems Review of Systems: All systems negative unless otherwise noted in HPI.
[2024-11-12 08:43] VITALS: BP 127/72; PULSE 72; RESP 19; TEMP 36.3; O2SAT 96; BMI 35.2
--- NOTE | 2024-11-12 09:11 | XR_ITS ---
Examination:Left hip AP, lateral, AP pelvis 3 views Technique: Hip AP lateral, AP pelvis, 3 views Exam date and time:November 12, 2024 0915 hours INDICATIONS: Status post left hip surgery October 01, 2024, comparison October 01, 2024 FINDINGS: Total left hip arthroplasty. Satisfactory alignment Moderate to advanced right hip osteoarthritis Advanced degenerative disc disease L4-L5 IMPRESSION: Total left hip arthroplasty with satisfactory alignment.
== END 2024-11-12 09:16 | disposition home or self-care (01) ==
LOC: HODSRG 08:13
PROVIDERS: PCP Specialist; Referring Provider Specialist; Supervising Provider Orthopaedic Surgery Adult Reconstructive Orthopaedic Surgery; Visit Provider Orthopaedic Surgery Adult Reconstructive Orthopaedic Surgery
DX: M16.12 Unilateral primary osteoarthritis, left hip (principal); Z96.642 Presence of left artificial hip joint; E66.9 Obesity, unspecified; Z68.35 Body mass index [BMI] 35.0-35.9, adult; K21.9 Gastro-esophageal reflux disease without esophagitis; Z87.442 Personal history of urinary calculi
CPT/HCPCS: 73502; 99213; G0463

== ENCOUNTER 2024-12-25 08:11 | Outpatient (AMB) | payer MEDICARE, BC, SELFPAY ==
--- NOTE | 2024-12-25 08:39 | PD.ORTHCLVIS ---
Vital signs 12/25/24 08:40 Height 1.63 m Height Method Stated Weight 95.028 kg Weight Measurement Method Standing Scale BMI 35.7 BP 144/78 H Blood Pressure Source Automatic Cuff Blood Pressure Location Left Upper Arm Position Sitting Respiration 19 Pulse 67 Pulse Source Monitor Temp 97.8 F Temp Source Temporal Artery Scan Pulse Oximetry (%) 97 Oxygen Delivery Method Room Air Med/Allergies Allergies & Medications Allergies No Known Allergies Allergy (Verified 12/25/24 08:40) Medication Reconciliation gabapentin 300 mg capsule 300 mg PO HS PRN pain 06/04/24 [History Confirmed 12/25/24] cholecalciferol (vitamin D3) 50 mcg (2,000 unit) tablet (D3 DOTS) 150 mcg PO QDAY 09/25/24 [History Confirmed 12/25/24] loratadine 10 mg tablet (Allerclear) 10 mg PO QDAY 09/25/24 [History Confirmed 12/25/24] magnesium 250 mg tablet 250 mg PO QDAY 09/25/24 [History Confirmed 12/25/24] meloxicam 15 mg tablet 15 mg PO DAILY 09/25/24 [History Confirmed 12/25/24] omega 5-phz-ncx-fish oil 1,200 mg (144 mg-216 mg) capsule (Fish Oil) 1 cap PO DAILY 09/25/24 [History Confirmed 12/25/24] turmeric 400 mg capsule 400 mg PO DAILY 09/25/24 [History Confirmed 12/25/24] acetaminophen 500 mg tablet (Acetaminophen Extra Strength) 1,000 mg (2 x 500 mg) PO Q6H PRN pain #90 tabs 10/01/24 [Rx Confirmed 12/25/24] aspirin 81 mg tablet,delayed release 81 mg PO BID #60 tabs 10/01/24 [Rx Confirmed 12/25/24] gabapentin 300 mg capsule 300 mg PO .qhs #30 caps 10/01/24 [Rx Confirmed 12/25/24] hydrocodone 5 mg-acetaminophen 325 mg tablet 1 tab PO Q6H PRN pain #28 tabs 10/02/24 [Rx Confirmed 12/25/24] Exam Exam Patient is in no acute distress and is cooperative with the examination today. Patient has a normal mood and affect. Breathing is nonlabored. In no respiratory distress. Bilateral extremities were evaluated and demonstrates sensation intact to light touch. Palpable pedal pulses are present. No significant edema is present. Left hip incision is clean dry and intact Left hip xrays demonstrate a CALIXTO in good alignment and position Assessment and Plan Problem List (1) Osteoarthritis of left hip: Status: Acute Plan: Patient is doing well status post left total hip replacement. We will see her back in approximately 6 weeks and she is doing well with outpatient physical therapy We will see the patient back in 6 weeks for routine follow-up. We will plan to have her out for another month as she cannot return to work yet due to a high demand job (2) Status post total hip replacement, left: Status: Acute Advanced Care Planning Discussion Advance care planning discussed with:: patient Office Procedures GNS Level of Care Nursing/Assessment Patient Status: Established Patient Nursing Assessment/Reassesment: Medication Reconciliation, Update PMH in EMR and Vital Signs Coordination of Care: Complex Care and Chronic Disease 1-5, Education Complex Pt/Fam, Consent,records obtained, informed consent, Results/Orders obtained and Staff clarify orders Established Patient Charge Established Patient Point Assignment: 95 Established Patient Point Charge: EP Level 3 (80-115) MA Intake Visit Data Collection New Patient or Established: Established Patient (seen at [facility] within 3 years) Reason for Visit:: 6 WK L CALIXTO FOLLOW UP/IMAGING RESULTS Seen by Clinical Staff ONLY (RN/MA): No Hospice Clinical Supervisor Required: No PCP or OBGYN visit in last 3 months: Yes Hx Now: No Do You Feel Safe at Home: Yes Authorities Contacted: N/A Questionairres Past Medical History Past Medical History Have you ever been diagnosed with any of the following: Neurological Problems Cerebrovascular Accident (CVA): No Transient Ischemic Attacks (TIA): No Dementia: No Alzheimer's Disease: No Parkinson's Disease: No Brain Tumor: No Meningitis: No Seizures: No Epilepsy: No Multiple Sclerosis: No Cerebral Palsy: No Amyotrophic Lateral Sclerosis (ALS/Viky Gehrig's): No Guillain-[place] Syndrome: No Spina Bifida: No Paralysis: No Peripheral Neuropathy: No Mcclelland's Palsy: No Subdural Hematoma: No Migraine: No Head Trauma: No Spinal Cord Injury: No Traumatic Brain Injury: No Cardiology Problems Myocardial Infarction: No Cardiac Arrhythmia: No Atrial Fibrillation: No Angina: No Heart Murmur: No Coronary Artery Disease: No Atherosclerotic Heart Disease: No Peripheral Vascular Disease: No Hypercholesterolemia: No Aneurysm: No Congestive Heart Failure: No Congenital Heart Disease: No Valvular Heart Disease: No Rheumatic Fever: No Cardiomyopathy: No Edema: No Pericarditis: No Cellulitis: No Deep Vein Thrombosis: No Hypertension: No Hypotension: No Varicose Veins: No Respiratory Problems Chronic Obstructive Pulmonary Disease (COPD): No Asthma: No Bronchitis: No Emphysema: No Pneumonia: Yes (01/2022 - NOT HOSP) Tuberculosis: No Pulmonary Embolism: No Pulmonary Edema: No Sleep Apnea: No CPAP Dependent: No Respiratory Aspiration: No Dyspnea: No Orthopnea: No Hx Cough: No Cough: No Wheezing: No Chest Deformities: No Smoking: No Smoking Cessation Counseling: No Smoking Exposure: No Tobacco Use: No Clubbing: No Exposure to Respiratory Irritants: No Intubation: No Stomache/Intestinal Problems Liver Cancer: No Hepatitis: No Cirrhosis: No Pancreatic Cancer: No Pancreatitis: No Celiac Disease: No Gall Bladder Disease: Yes (FOR THIS PROC) Gastrointestinal Bleed: No Esophageal Varices: No Butler's Esophagus: No Colitis: No Ulcerative Colitis: No Diverticulitis: No Diverticulosis: No Ulcer: No Colorectal Cancer: No Irritable Bowel: No Crohn's Disease: No Obstructive Bowel: No Hiatal Hernia: No Hemorrhoids: No Gastroesophageal Reflux Disease: Yes Polyps: No Obesity: Yes Genital/Urinary Problems Chronic Kidney Disease: No Renal Disease: No Kidney Stones: Yes (NO SURG) Polycystic Kidney Disease: No Neurogenic Bladder: No Inguinal Hernia: No Dialysis: No Reproductive Problems Breast Cancer: No Endometriosis: No Fibroids: No Genital Herpes: No Gonorrhea: No Pelvic Inflammatory Disease: No Polycystic Ovarian Syndrome: No Previous Pregnancies: Yes (X3) Syphilis: No Uterine Prolapse: No Musculoskeletal Problems Muscular Dystrophy: No Myasthenia Gravis: No Marfan's Syndrome: No Bone Cancer: No Arthritis: No Rheumatoid Arthritis: No Osteoporosis: No Degenerative Disk Disease: No Gout: No Scoliosis: No Carpal Tunnel Syndrome: No Fibromyalgia: No Fractures: No Degenerative Joint Disease: No Osteomyelitis: No Poliovirus: No Head,Eye,Nose,Throat Problems Cataracts: No Glaucoma: No Blind: No Retinal Detachment: No Macular Degeneration: No Chronic Ear Infections: No Deafness: No Eye Prosthesis: No Endocrine Problems Diabetes Mellitus Type 1: No Diabetes Mellitus Type 2: No Hypoglycemia: No Nona's Syndrome: No Bacon's Disease: No Hyperthyroidism: No Hypothyroidism: No Thyroid Cancer: No Parathyroid Disease: No Pituitary Disease: No Systemic Lupus Erythematosus: No Syndrome of Inappropriate Antidiuretic Hormone: No Adrenal Disease: No Graves' Disease: No Blood Problems Anemia: No Leukemia: No Hemophilia: No Thalassemia: No Sickle Cell Disease: No Clotting Problems: No Psychologic Problems Schizophrenia: No Recreational Drug Use: No Bipolar Disorder: No Depression: No Anxiety: No Behavior Problems: No Self-Mutilation: No Attention Deficit Disorder: No Attention Deficit Hyperactivity Disorder: No Depression: No Post Traumatic Stress Disorder: No Eating Disorder: No Other Problems Hospitalization: No Autoimmune Disease: No Down Syndrome: No Autism: No Developmental Delay: No Cosmetic Surgery: No Shingles: No Falls: No Blood Transfusions: No Blood Transfusion Reaction: No Anesthesia Reactions: No Organ Transplant: No Chemotherapy: No Radiation Therapy: No Hyperbaric Therapy: No MRSA: No VRSA: No Vancomycin-Resistant Enterococci: No Human Immunodeficiency Virus (HIV): No Chicken Pox: Yes Measles: No Mumps: No Rubella (Citizen [place] Measles): No Pertussis: No Klebsiella Pneumoniae Carbapenemase Producing Bacteria: No Clostridium Difficile: No Hepatitis A: No Hepatitis B: No Hepatitis C: No Communicable Disease: No Cancer: No Cervical Cancer: No Lung Cancer: No Ovarian Cancer: No Surgical History Angioplasty: No Appendectomy: No Bariatric Surgery: No Breast Surgery: No Cancer Surgery: No Carotid Endarterectomy: No Cholecystectomy: No Colectomy: No Colostomy: No Coronary Artery Bypass Graft: No Valve Replacement: No Herniorrhaphy: No Total Hip Replacement: No Total Knee Replacement: No Hysterectomy: No Pacemaker: No Sinus Surgery: No Splenectomy: No TAHBSO-Total Abdominal Hysterectomy: No Thyroidectomy: No Ureter Stent: No Subjective Visit Visit for: follow up visit and hip Immunization / Flu Flu Vaccine in the Last 12 Months: No Flu Vaccine Exclusion Criteria: No Exclusion Criteria History of Present Illness Chief complaint: Left hip pain Edmundo is a pleasant 69-year-old female with left hip pain. She has had prior back issues and is being worked up at [facility] has had multiple injections. The left CALIXTO is doing well. Personal History Red flag PMH: none Pain Pain level (0-10): 0 Pain duration: ALL DAY Pain location: outside (lateral) Pain quality: aching Pain timing: night, increases with activity and stairs Associated signs & symptoms: none Ambulatory data Ambulatory device: none Walking distance (minutes): 5 Treatments Number of previous injections: 0 Improvement with previous injections: No Number of Physical Therapy sessions: 12 Improvement with PT: Yes Improvement with NSAIDS: no Review of Systems Review of Systems: All systems negative unless otherwise noted in HPI.
[2024-12-25 08:40] VITALS: BP 144/78; PULSE 67; RESP 19; TEMP 36.6; O2SAT 97; BMI 35.7
== END 2024-12-25 09:01 | disposition home or self-care (01) ==
LOC: HODSRG 08:11
PROVIDERS: PCP Specialist; Referring Provider Specialist; Supervising Provider Orthopaedic Surgery Adult Reconstructive Orthopaedic Surgery; Visit Provider Orthopaedic Surgery Adult Reconstructive Orthopaedic Surgery
DX: M25.552 Pain in left hip (principal); Z96.642 Presence of left artificial hip joint
CPT/HCPCS: 99213; G0463